=== PATIENT | male | born 1975 | race Caucasian/White ===

== ENCOUNTER 2021-07-11 16:20 | Emergency (ER) | payer OTHER, SELFPAY ==
--- NOTE | 2021-07-11 16:24 | ED.SKABFB ---
HPI - Skin/Abscess/Foreign Bdy General Chief complaint: Skin/Abscess/Foreign Body Stated complaint: Skin Sore Time Seen by Provider: 07/11/21 16:24 Source: patient and RN notes reviewed History of Present Illness HPI narrative: Patient is a 45-year-old male who presents the urgent care with complaints of a sore to the right lower leg. Patient states is been there approximately 3 days and he is concerned because he has a history of staph infection confirmed to the face and abdomen. Patient denies of any fevers, chills, nausea, vomiting. No other acute complaints. No acute distress noted. Patient aware of the plan of care. Some parts of this dictation were generated by voice recognition software and may contain typographical and/or grammatical inaccuracies. Related Data Home Medications Medication Instructions Recorded Confirmed atorvastatin 80 mg PO DAILY 07/11/21 07/11/21 esomeprazole magnesium 40 mg PO DAILY 07/11/21 07/11/21 gabapentin 100 mg PO DAILY 07/11/21 07/11/21 Allergies Allergy/AdvReac Type Severity Reaction Status Date / Time No Known Allergies Allergy Verified 07/11/21 16:36 Review of Systems Review of Systems: CONSTITUTIONAL: Denies fever, chills, or sweats. EYES: Denies visual changes, redness, or discharge. ENT: Denies rhinorrhea, congestion, sore throat, or otalgia. CARDIOVASCULAR: Denies chest pain, palpitations, or edema. RESPIRATORY: Denies cough or dyspnea. GASTROINTESTINAL: Denies abdominal pain, nausea, vomiting, or diarrhea. GENITOURINARY: Denies dysuria or hematuria. SKIN: Reports a possible staph with a open sore to the right lower leg MUSCULOSKELETAL: Denies back pain, joint pain, or myalgia. NEUROLOGIC: Denies headache, numbness, or weakness. All other systems reviewed are negative, except as documented in HPI. PMFSH Comments At the time of my signature, I reviewed and agree with the nursing past medical, surgical, social, and family history. There is no relevant family history pertinent to the patient complaint. Exam Narrative: GENERAL: This is a well-nourished, well-developed patient, in no apparent distress. HEAD: normocephalic, atraumatic. EYES: PERRL. Sclera clear/white. Vision is grossly intact. EARS: External ears normal NOSE: External nose normal with no obvious nasal discharge, nares without redness, no rhinorrhea. THROAT: Mucous membranes moist NECK: Neck supple CARDIOVASCULAR: Regular rate and rhythm without murmurs, gallops, or rubs. RESPIRATORY: Clear to auscultation. Breath sounds equal bilaterally. No wheezes, rales, or rhonchi. SKIN: 6 x 4 cm area of erythema to the right lower leg, distal to the right knee, firm and scant drainage NEURO: awake, alert, and oriented to person, place and time. There were no obvious focal neurologic abnormalities. EXTREMITIES: No clubbing, cyanosis, or edema. Course Course Level of Care: Express Care Visit Vital Signs Vital signs: Vital Signs Temperature 98.6 F 07/11/21 16:28 Pulse Rate 105 H 07/11/21 16:28 Respiratory Rate 16 07/11/21 16:28 Blood Pressure 138/76 07/11/21 16:28 Pulse Oximetry 98 07/11/21 16:28 Temperature 98.6 F 07/11/21 16:38 Pulse Rate 105 H 07/11/21 16:38 Respiratory Rate 16 07/11/21 16:38 Blood Pressure 138/76 07/11/21 16:38 Pulse Oximetry 98 07/11/21 16:38 Reviewed MDM - Skin/Abscess/Foreign Bdy MDM Narrative Medical decision making narrative: Advised patient to complete the oral antibiotic regimen as prescribed. Be sure to eat and drink with medication. Use Tylenol/ibuprofen as needed for pain. Do not squeeze or poke on the area. Make sure to wash it with plain Dial soap and water and do not use alcohol. Do not use the same wash rag to wash your sore as you are washing your body. You will spread the infection if it is for certain staff. Use the mupirocin cream to the affected area as directed. Follow-up with your PCP within 2 to 5 days or for worsening symptoms or fa
[2021-07-11 16:28] VITALS: BP 138/76; PULSE 105; RESP 16; TEMP 37; O2SAT 98
[2021-07-11 16:38] VITALS: BP 138/76; PULSE 105; RESP 16; TEMP 37; O2SAT 98
== END 2021-07-11 17:07 | disposition home or self-care (01) ==
PROVIDERS: Emergency Provider Nurse Practitioner Family; PCP Internal Medicine
DX: L03.115 Cellulitis of right lower limb (principal); G25.81 Restless legs syndrome; E78.00 Pure hypercholesterolemia, unspecified; K21.9 Gastro-esophageal reflux disease without esophagitis; Z86.19 Personal history of other infectious and parasitic diseases
CPT/HCPCS: 99203; G0463